=== PATIENT | female | born 1970 | race Caucasian/White ===

== ENCOUNTER 2024-03-10 08:07 | Emergency (ER) | payer OTHER, SELFPAY ==
[2024-03-10 08:11] VITALS: BP 124/80
--- NOTE | 2024-03-10 08:19 | ED.GENMED ---
History of Present Illness
<EDWIN Harris - Last Filed: 03/10/24 16:19>
General
Chief Complaint: Dizziness
Source: patient and ambulance crew
Exam Limitations: none
Time Seen by Provider: 03/10/24 08:09
Nursing documentation reviewed up to this point in time: agreed with
History of Present Illness
History of Present Illness:
Patient is a 54-year-old female brought by EMS for evaluation of dizziness. EMS reports patient works at [employer] and was found sleeping on the bench outside of work. She reports she was dizzy when she got out of her car and lay down. She
feels lightheaded but also reports she feels dizzy like she is moving. Symptoms are better at rest. She is a very limited and poor historian.
Patient denies any recent alcohol use.
Past History
<EDWIN Harris - Last Filed: 03/10/24 16:19>
Past History
ED Past Medical History: COPD, Psychiatric (Anxiety) and Other
ED Past Surgical History: None
Social History
Tobacco: Smoker
Alcohol: None
Personal: Single
Living: with family
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
Review of Systems
<EDWIN Harris - Last Filed: 03/10/24 16:19>
Review of Systems
Allergies reviewed?: Yes
All Other Systems: ROS reviewed and negative except as documented in HPI and ROS
Constitutional: Reports no symptoms; Denies fever, fatigue or chills
Cardiac: Reports no symptoms
ABD/GI: Reports no symptoms
: Reports no symptoms
Musculoskeletal: Reports no symptoms
Skin: Reports no symptoms
Neurological: Reports dizzy
Psychiatric: Reports no symptoms
Phy Exam
<EDWIN Harris - Last Filed: 03/10/24 16:19>
General Physical Exam
General Presentation: no apparent distress
General age: appears stated age
General Skin: warm and dry
General Habitus: normal
General Mental: alert
General Hydration: appears well hydrated
Eye Exam
Eye Exam: PERRL, EOMI and other (No nystagmus bilaterally)
Eye Exam General: PERRL: bilateral and EOM intact: bilateral
Pupil Exam: Bilateral: round and reactive
Cardiovascular Exam
Cardiovascular Exam: regular rate/rhythm and normal peripheral pulses
Pulmonary Exam
Pulmonary Exam: lungs clear and no respiratory distress
Neurological Exam
Neurological Exam: alert and oriented x3
Musculoskeletal Exam
Musculoskeletal Exam: full ROM
Skin Exam
Skin Exam: normal color and warm/dry
Psychiatric Exam
Psychiatric Exam: normal mood/affect
Course
<EDWIN Harris - Last Filed: 03/10/24 16:19>
Orders/Labs/Results
Orders:
Orders
03/10/24 08:21
0.9% Sodium Chloride 1000 ml [Nss] 1,000 ml IV BOLUS
diazePAM [Valium Injection] 2 mg IV NOW STA
03/10/24 08:23
Alcohol Urgent
Complete Blood Count/With Diff Urgent
Comprehensive Metabolic Panel Urgent
03/10/24 08:27
CT Head W/o Iv Contrast Urgent
Comment:
Reason For Exam: dizziness/vertigo
Abnormal Lab Results
03/10/24
08:23
RBC 3.90 L 10^6/uL
(4.20-5.40)
Hct 36.6 L %
(37.0-47.0)
MCH 31.3 H pg
(27.0-31.0)
Abs Immat Gran (auto) 0.1 H 10^3/uL
(0-0.05)
Absolute Neuts (auto) 8.1 H 10^3/uL
(1.4-6.5)
Absolute Lymphs (auto) 0.6 L 10^3/uL
(1.2-3.4)
Neutrophils % 87.8 H %
(42.2-75.2)
Lymphocytes % 6.0 L %
(20.5-51.1)
Creatinine 0.5 L mg/dL
(0.6-1.0)
Glucose 164 H mg/dl
(70-99)
Alkaline Phosphatase 184 H U/L
(38-126)
03/10/24 08:23
03/10/24 08:23
Vital Signs
Initial and Last Documented VS:
Initial Vital Signs
Temp Pulse Resp BP Pulse Ox
97.5 F 83 18 124/80 100
03/10/24 08:11 03/10/24 08:11 03/10/24 08:11 03/10/24 08:11 03/10/24 08:11
Last Documented Vital Signs
Temp Pulse Resp BP Pulse Ox
97.5 F 92 25 112/61 100
03/10/24 08:11 03/10/24 10:56 03/10/24 10:56 03/10/24 12:25 03/10/24 10:56
<Donovan Jackson, DO - Last Filed: 03/10/24 16:24>
Orders/Labs/Results
Orders:
Orders
03/10/24 08:21
0.9% Sodium Chloride 1000 ml [Nss] 1,000 ml IV BOLUS
diazePAM [Valium Injection] 2 mg IV NOW STA
03/10/24 08:23
Alcohol Urgent
Complete Blood Count/With Diff Urgent
Comprehensive Metabolic Panel Urgent
03/10/24 08:27
CT Head W/o Iv Contrast Urgent
Comment:
Reason For Exam: dizziness/vertigo
Abnormal Lab Results
03/10/24
08:23
RBC 3.90 L 10^6/uL
(4.20-5.40)
Hct 36.6 L %
(37.0-47.0)
MCH 31.3 H pg
(27.0-31.0)
Abs Immat Gran (auto) 0.1 H 10^3/uL
(0-0.05)
Absolute Neuts (auto) 8.1 H 10^3/uL
(1.4-6.5)
Absolute Lymphs (auto) 0.6 L 10^3/uL
(1.2-3.4)
Neutrophils % 87.8 H %
(42.2-75.2)
Lymphocytes % 6.0 L %
(20.5-51.1)
Creatinine 0.5 L mg/dL
(0.6-1.0)
Glucose 164 H mg/dl
(70-99)
Alkaline Phosphatase 184 H U/L
(38-126)
03/10/24 08:23
03/10/24 08:23
Vital Signs
Initial and Last Documented VS:
Initial Vital Signs
Temp Pulse Resp BP Pulse Ox
97.5 F 83 18 124/80 100
03/10/24 08:11 03/10/24 08:11 03/10/24 08:11 03/10/24 08:11 03/10/24 08:11
Last Documented Vital Signs
Temp Pulse Resp BP Pulse Ox
97.5 F 92 25 112/61 100
03/10/24 08:11 03/10/24 10:56 03/10/24 10:56 03/10/24 12:25 03/10/24 10:56
<EDWIN Harris - Last Filed: 03/10/24 16:19>
MDM/Problems Addressed
Differential Diagnosis Includes:
Not limited to vertigo dehydration lightheadedness
MDM/Problems Addressed:
Patient is a 54-year-old female presents with dizziness. She is very nonspecific. She is very limited and poor historian. Mother at bedside does report patient is at baseline mental status however c/o of generalized dizziness worse w/ ambulation.
She denies recent alcohol intake alcohol level was drawn and 0. Patient presents in no acute distress no recent fevers and is afebrile here with a normal white count stable hemoglobin blood glucose mildly elevated however normal kidney function.
Patient was given fluids and monitored here she is ambulatory to the bathroom and in no distress. ct head neg. no concerning symptoms.
<EDWIN Harris - Last Filed: 03/10/24 16:19>
*Critical Care Note
Total Time (30-74mins, 75-104mins- exclusive of procedures): Not Applicable
ED Attending Note
<EDWIN Harris - Last Filed: 03/10/24 16:19>
-
Portions of this chart may have been created with voice recognition software.� Occasional wrong word or��sound alike� substitutions may have occurred due to the inherent limitations of voice recognition software.
<Donovan Jackson DO - Last Filed: 03/10/24 16:24>
ED Attending Note
Patient seen and examined by attending physician: Yes
ED Attending Note:
I reviewed and agree with history and treatment plan by Merry Brizuela. My exam revealed 54-year-old female in no acute findings. No neurologic deficits. Patient ambulates without difficulty. Do not suspect CVA. Stable for discharge.
Discharge Plan
Departure
Patient Disposition: Home (Routine Discharge)
Date of Disposition: 03/10/24
Time of Disposition: 14:29
Patient with high blood pressure during this ER visit?: No
Condition: Fair
Covid-19: Not Applicable
Discharge Problem:
Dizziness
Instructions: Dizziness
Prescriptions:
No Action
fluticasone propionate [Flovent HFA] 1 PUFF HFA aerosol inhaler
2 puff inhalation R BID
prednisone 20 MG tablet
40 mg PO DAILY Qty: 8 0RF
albuterol sulfate [Albuterol Sulfate HFA] 18 GM HFA aerosol inhaler
18 gm inhalation Q4 Qty: 1 0RF
cephalexin 500 mg capsule
500 mg PO Q6H 10 Days Qty: 40 0RF
sulfamethoxazole-trimethoprim [Bactrim DS] 800-160 mg tablet
2 tab PO BID 7 Days Qty: 28 0RF
Referrals:
Lino Olivera MD [Family Provider] -
Stand Alone Forms: Return to Work
Activity Restrictions/Additional Instructions:
As discussed stay well-hydrated. Follow-up with your family doctor in the next several days.
reevaluation return if any worsening of symptoms
Interventions
Interventions:
*Risk Screen - Suicide Last Done: 03/10/24 08:17
*General Assessment Last Done: 03/10/24 08:17
*Neglect/Abuse Screening Last Done: 03/10/24 08:17
ED- Fall Risk Assessment Last Done: 03/10/24 08:54
*ED COVID-19 Vaccine History Last Done: 03/10/24 08:17
*Nursing Disposition Last Done: 03/10/24 14:52
ED- Neurological Assessment Last Done: 03/10/24 08:54
ED- Cardiac Assessment Last Done: 03/10/24 08:54
Discharge Date and Time
Discharge Date/Time: 03/10/24 14:53
Print Language: BULGARIAN
[2024-03-10] MEDS: VALIUM INJECTION 2 MG IV (08:28)
[2024-03-10] MEDS: NSS 1000 IV (08:28)
[2024-03-10 08:47] LABS: % Basophils 0.2 % (0-2); % Eosinophils 0.1 % (0-6); % Immature Granulocytes 0.5 % (0-0.5); % Monocytes 5.4 % (1.7-9.3); % Neutrophils 87.8 % (42.2-75.2); Absolute Immature Granulocytes 0.1 10^3/uL (0-0.05); Absolute Lymphocytes 0.6 10^3/uL (1.2-3.4); Absolute Monocytes 0.5 10^3/uL (0.1-0.6); Absolute Neutrophils 8.1 10^3/uL (1.4-6.5); Hematocrit 36.6 % (37.0-47.0); Hemoglobin 12.2 g/dL (12.0-16.0); Mean Corp Hgb Conc. 33.3 g/dL (33.0-37.0); Mean Corpuscular Hgb 31.3 pg (27.0-31.0); Mean Corpuscular Volume 93.8 fL (81.0-99.0); Mean Platelet Volume 9.2 fL (7.4-10.4); Nucleated Red Blood Cells % 0 %; Platelet Count 217 10^3/uL (130-400); Red Cell Dist. Width 12.8 % (11.5-14.5); White Blood Cell Count 9.3 10^3/uL (4.8-10.8)
[2024-03-10 08:52] LABS: ALT (SGPT) 29 U/L (0-35); AST (SGOT) 29 U/L (14-36); Albumin 4.3 g/dl (3.5-5.0); Alkaline Phosphatase 184 U/L (38-126); Blood Urea Nitrogen 16 mg/dl (7-17); Calcium 9.2 mg/dl (8.4-10.2); Carbon Dioxide 25 mmol/L (22-30); Chloride 103 mmol/L (98-107); Glucose 164 mg/dl (70-99); Potassium 3.7 mmol/L (3.5-5.1); Sodium 135 mmol/L (135-145); Total Bilirubin 0.6 mg/dl (0.2-1.3); Total Protein 6.9 g/dl (6.3-8.2); eGFR > 60.00
[2024-03-10 08:53] LABS: Alcohol None Detected
[2024-03-10 10:00] VITALS: BP 97/51
[2024-03-10 12:25] VITALS: BP 112/61
== END 2024-03-10 14:53 | disposition home or self-care (01) ==
LOC: EMR 08:07
PROVIDERS: Nurse Practitioner; EMERGENCY PHYSICIAN Emergency Medicine; FAMILY PHYSICIAN Family Medicine
DX: R42 Dizziness and giddiness (principal); J44.9 Chronic obstructive pulmonary disease, unspecified; F17.200 Nicotine dependence, unspecified, uncomplicated
CPT/HCPCS: 96374; 96361; 99284; 70450; 80053; 82077; 85025